=== PATIENT | female | born 1945 | race Caucasian/White ===

== ENCOUNTER 2017-01-09 08:20 | Emergency (ER) | payer MEDICARE ==
[~2017-01-09] VITALS: Ht 170.2 cm; Wt 82.3 kg
[~2017-01-09 08:20] MED LIST: PRIL20CA PO
[2017-01-09 08:24] VITALS: BP 148/82; PULSE 66; RESP 16; TEMP 98.4; O2SAT 100
[2017-01-09 09:05] LABS: POTASSIUM 4.5 MEQ/L (3.5-5.1)
[2017-01-09 09:08] LABS: BICARBONATE 28.8 MEQ/L (21.0-32.0)
--- NOTE | 2017-01-09 09:34 | PD ---
HPI Chief Complaint: Edema Time Seen by Provider: 08:41 Travel History International Travel<30 days: No Contact w/Intl Traveler<30days: No Traveled to known affect area: No History of Present Illness HPI Patient is a 71-year-old female who presents to emergency room for evaluation of right lower extremity edema. She reports that last week, she had cryoablation of a skin lesion of her right lower extremity. Patient reports that after the cryoablation, she developed an infection to the area and had been on doxycycline for 5 days. Patient reports that she has since completed all antibiotics and infection has resolved. Reports that for the past few days , she has noticed increased swelling and pain to her right calf. Patient reports no fevers or chills, reports increased cramping sensation to her right calf. She denies any history of DVT or PE in the past. Reports that she is here for evaluation of possible DVT as she, as well as her was concerned for this. PFSH Past Medical History Asthma: No Autoimmune Disease: No Blood Disorders: No Cancer: No Cardiovascular Problems: Yes (CHEST PAIN 12/12/11) COPD: No Diabetes: No Endocrine: No Gastrointestinal Disorders: Yes GERD: Yes Genitourinary: Yes Hepatitis: Yes (HEP A) Hiatal Hernia: No Immune Disorder: No Musculoskeletal: No Neurologic: No Psychiatric: No Reproductive: No Respiratory: Yes (BRONCHITIS,PNEUMONIA) Thyroid Disease: No Ulcer: No Influenza Vaccination: No ?: Not Menopausal: Yes Ovarian Cysts: Yes Past Surgical History Abdominal Surgery: Yes (umbilical hernia) AICD: No Cardiac Surgery: No Cholecystectomy: Yes Ear Surgery: No Endocrine Surgery: No Eye Surgery: No Genitourinary Surgery: No Gynecologic Surgery: Yes (LAPAROSCOPIC FOR OVARIAN CYST) Joint Replacement: No Neurologic Surgery: No Oral Surgery: No Pacemaker: No Thoracic Surgery: No Other Surgery: Yes (hand ) Social History Alcohol Use: Yes (OCCASIONL WINE) Tobacco Use: No Substance Use: No Allergies-Medications (Allergen,Severity, Reaction): Coded Allergies: Augmentin (Verified Allergy, Severe, Rash, 01/09/17) Penicillin (Verified Allergy, Severe, SOB, 01/09/17) Sulfa (Verified Allergy, Severe, CAN'T REMEMBER, A CHILD, 01/09/17) Reported Meds & Prescriptions Reported Meds & Active Scripts Active No Active Prescriptions or Reported Medications Review of Systems General / Constitutional: No: Fever Eyes: No: Visual changes HENT: No: Headaches Cardiovascular: No: Chest Pain or Discomfort Respiratory: No: Shortness of Breath Gastrointestinal: No: Abdominal Pain Genitourinary: No: Dysuria Musculoskeletal: Positive: Cramping, Edema, No: Pain Skin: No Rash Neurologic: No: Weakness Psychiatric: No: Depression Endocrine: No: Polydipsia Hematologic/Lymphatic: No: Easy Bruising Physical Exam Narrative GENERAL: No acute distress, nontoxic SKIN: Focused skin assessment warm/dry. HEAD: Atraumatic. Normocephalic. NECK: Trachea midline. No JVD. CARDIOVASCULAR: Regular rate and rhythm. No murmur appreciated. RESPIRATORY: No accessory muscle use. Clear to auscultation. Breath sounds equal bilaterally. GASTROINTESTINAL: Abdomen soft, non-tender, nondistended. Hepatic and splenic margins not palpable. MUSCULOSKELETAL: No obvious deformities. No clubbing. No cyanosis. Patient with mild edema to right ankle, patient with right calf pain, patient with healing wound to her right anterior ankle, no signs of erythema or infection NEUROLOGICAL: Awake and alert. Normal speech. PSYCHIATRIC: Appropriate mood and affect; insight and judgment normal. Data Data Last Documented VS Vital Signs Date Time Temp Pulse Resp B/P Pulse Ox O2 Delivery O2 Flow Rate FiO2 01/09/17 08:24 98.4 66 16 148/82 100 Orders Us Leg Venous Doppler (01/09/17 ) Basic Metabolic Panel (Bmp) (01/09/17 08:44) Labs Laboratory Tests Test 01/09/17 08:50 Sodium Level 141 MEQ/L Potassium Level 4.5 MEQ/L Chloride Level 108 MEQ/L Carbon Dioxide Level 28.8 MEQ/L Anion Gap 4 MEQ/L Blood Urea Nitrogen 27 MG/DL Creatinine 0.78 MG/DL Estimat Glomerular Filtration 73 ML/MIN Rate Random Glucose 105 MG/DL Calcium Level 8.8 MG/DL MDM Medical Decision Making Medical Screen Exam Complete: Yes Emergency Medical Condition: Yes Interpretation(s) Vital Signs Date Time Temp Pulse Resp B/P Pulse Ox O2 Delivery O2 Flow Rate FiO2 01/09/17 08:24 98.4 66 16 148/82 100 Differential Diagnosis Electrolyte abnormality, DVT Narrative Course Patient is a 71-year-old female who presents to emergency room for evaluation of possible DVT. Patient reports that she has increased cramping pain to her right calf, she was recently treated for skin lesion with cryoablation and then developed an infection after this procedure, patient has completed full course of antibiotics. Patient reports concerns for possible DVT as she has had increased crampy right lower extremity pain. Patient is nontoxic and evaluation, plan to obtain a BMP to evaluate for electrolyte abnormality, US ordered to Rule out DVT Laboratory Tests Test 01/09/17 08:50 Sodium Level 141 MEQ/L (136-145) Potassium Level 4.5 MEQ/L (3.5-5.1) Chloride Level 108 MEQ/L (98-107) Carbon Dioxide Level 28.8 MEQ/L (21.0-32.0) Anion Gap 4 MEQ/L (5-15) Blood Urea Nitrogen 27 MG/DL (7-18) Creatinine 0.78 MG/DL (0.50-1.00) Estimat Glomerular Filtration 73 ML/MIN (>89) Rate Random Glucose 105 MG/DL (74-106) Calcium Level 8.8 MG/DL (8.5-10.1) Last Impressions Lower Extremity Ultrasound 01/09/17 0000 Signed Impressions: Service Date/Time: Monday, January 09, 2017 09:49 - CONCLUSION: Negative exam. No sonographic or Doppler findings of deep venous thrombosis. Carlton Calderon MD I reviewed all labs and all studies with patient in detail. Patient with no DVT and exam, discussed need for repeat ultrasound 1 week if symptoms persist. Patient will follow up with her primary care doctor and will return to the emergency room as needed. Diagnosis Primary Impression: Leg cramping Patient Instructions: General Instructions Additional Instructions: Please follow-up with your primary care doctor Have your ultrasound repeated in 1 week if symptoms persist Return to emergency room symptoms worsen or progress or return Return to the emergency room as needed Scripts No Active Prescriptions or Reported Meds Disposition: 01 DISCHARGE HOME Condition: Stable FrancescoJenn DO January 09, 2017 09:34
--- NOTE | 2017-01-09 10:50 | RADHPO ---
EXAM DATE/TIME: 01/09/2017 09:49 [facility] COMPARISON: No previous studies available for comparison. INDICATIONS : Right leg swelling. MEDICAL HISTORY : Gastroesophageal reflux disease. Hepatitis A. Ovarian cysts. UTI. Umbilical hernia. Bronchitis. P neumonia. Measles. SURGICAL HISTORY : Cholecystectomy. ENCOUNTER: Initial ACUITY: 2 weeks PAIN SCORE: 4/10 LOCATION: Right leg. TECHNIQUE: Venous ultrasound of the leg was performed from the inguinal ligament to the proximal calf. Real-alireza e, color Doppler and spectral tracing, compression and augmentation techniques were used. FINDINGS: There is normal compressibility of the deep venous system from the inguinal region to the proximal ca lf. No echogenic clot is seen in the lumen of the common femoral, femoral, popliteal, and posterior tibial veins. There is a normal response of the venous system to proximal and distal augmentation an d respiration. CONCLUSION: Negative exam. No sonographic or Doppler findings of deep venous thrombosis. Carlton Calderon MD on January 09, 2017 at 10:43 Board Certified Radiologist. This report was verified electronically.
== END 2017-01-09 11:09 | disposition home or self-care (01) ==
LOC: PHEFT 08:20
DX: R25.2 Cramp and spasm (principal); B15.9 Hepatitis A without hepatic coma; K21.9 Gastro-esophageal reflux disease without esophagitis; Z88.0 Allergy status to penicillin; Z88.2 Allergy status to sulfonamides
CPT/HCPCS: 80048; 93971; 99284